=== PATIENT | female | born 1970 | race Caucasian/White ===

== ENCOUNTER 2017-01-09 12:09 | Inpatient (IN) | payer MEDICAID, OTHER ==
[~2017-01-09] VITALS: Ht 167.6 cm; Wt 67.4 kg
[2017-01-09 12:48] LABS: MEAN CORPUSCULAR HEMOGLOBIN 32.6 pg (27.0-33.0); MEAN CORPUSCULAR VOLUME 95.8 fl (80.0-96.0); RED CELL DISTRIBUTION WIDTH 11.4 % (11.5-14.5); WHITE BLOOD COUNT 5.2 K/mm3 (4.0-10.0)
[2017-01-09 12:58] LABS: AMPHETAMINES LEVEL URINE NEGATIVE (NEGATIVE); BENZODIAZEPINES URINE NEGATIVE (NEGATIVE); COCAINE METABOLITE URINE NEGATIVE (NEGATIVE); CONTROL LINE INT CTR LINE PRESENT; METHADONE URINE NEGATIVE (NEGATIVE); OPIATES URINE NEGATIVE (NEGATIVE); TRICYCLIC ANTIDEPRESS URINE NEGATIVE (NEGATIVE)
[2017-01-09 13:12] LABS: ALBUMIN 4.2 GM/DL (3.2-5.2); ALBUMIN/GLOBULIN RATIO 1.11 (1.00-1.93); ALKALINE PHOSPHATASE 82 U/L (45-117); ALT/SGPT 21 U/L (12-78); ANION GAP 6 MEQ/L (8-16); AST/SGOT 18 U/L (15-37); BILIRUBIN,DIRECT 0.1 MG/DL (0.0-0.2); BILIRUBIN,TOTAL 0.4 MG/DL (0.2-1.0); BLOOD UREA NITROGEN 11 MG/DL (7-18); CARBON DIOXIDE LEVEL 28 MEQ/L (21-32); CHLORIDE LEVEL 105 MEQ/L (98-107); CREATININE FOR GFR 0.98 MG/DL (0.55-1.02); GLOMERULAR FILTRATION RATE > 60.0 (>58); GLUCOSE, FASTING 91 MG/DL (70-105); POTASSIUM SERUM 4.4 MEQ/L (3.5-5.1); SODIUM LEVEL 139 MEQ/L (136-145)
[2017-01-09] MEDS ORDERED: LAMI50TA PO (16:09)
[2017-01-09] MEDS ORDERED: ALEV1TAB PO (16:09)
[2017-01-09] MEDS ORDERED: HALO0.052 TOP (16:09)
--- NOTE | 2017-01-09 16:55 | EDDOCDS ---
Physician Documentation [facility] Name: Tarsha Fuentes Age: 46 yrs Sex: Female : 1970 Arrival Date: 01/09/2017 Time: 12:09 Bed [facility] Private MD: Disposition: 01/09/17 15:22 Hospitalization ordered by Darcy Ward for Inpatient Admission. Preliminary diagnosis is Unspecified psychosis not due to a substance or known physiological condition. - Bed requested for Admit. - Status is Inpatient Admission. mcp - Condition is Stable. - Problem is an acute exacerbation. - Symptoms are unchanged. Historical: - Allergies: Maxalt (throat swells); - Home Meds: 1. Lamictal is taking 50mg po BID--is supposed to be increased to 200mg ER but is waiting for prior authorization Oral 2. Aleve PM 220-25 mg oral tab as needed - PMHx: Mitral valve prolapse; Seizures; tachycardia; Migraines; ectopic x2; - PSHx: Hysterectomy; - Social history: Smoking status: Patient uses tobacco products, light tobacco smoker. No barriers to communication noted, The patient speaks fluent Malay. - Family history: Not pertinent. - : The pt / caregiver states he / she is not on anticoagulants. Home medication list is obtained from the patient. - Exposure Risk Screening:: None identified. PRINCIPAL TECHNOLOGIST: 01/09 12:30 2, Living 0, LMP N/A - Hysterectomy mcp Vital Signs: 12:30 Weight 70.31 kg / 155.01 lbs; Height 5 ft. 6 in. (167.64 cm); Pain 8/10; mcp 12:37 BP 126 / 80; Pulse 63; Resp 18; Temp 96.2(O); Pulse Ox 100% on R/A; mcp 16:49 BP 144 / 88; Pulse 73; Resp 18; Temp 97.4(O); Pulse Ox 98% on R/A; Pain 6/10; mcp 12:30 Body Mass Index 25.02 (70.31 kg, 167.64 cm) [facility] MDM: 12:35 Consult PFS/PSA/Weights And Measures Sealer ordered. jc4 12:35 Consult PFS/PSA/Weights And Measures Sealer: Patient's case requires discussion with on-call jc4 Psychiatrist ordered. 12:35 PSA/PFS to call Nursing Medical Coding Technician, to enter patient data on [facility] Safe Act if patient jc4 involuntarily admitted or transferred for SI or HI ordered. 12:35 Confirm accurate psychiatric medication list and times of last dosage ordered. jc4 12:35 Detain Pt Until Medically/PFS Cleared ordered. jc4 12:36 Acetaminophen Level Ordered. EDMS 12:36 Basic Metabolic Profile Ordered. EDMS 12:36 Complete Blood Count Ordered. EDMS 12:36 Drug Eval Toxicology ED Only Ordered. EDMS 12:36 Ethyl Alcohol (ethanol) Ordered. EDMS 12:36 Liver Profile Ordered. EDMS 12:36 Salicylate Level Ordered. EDMS 12:36 Thyroid Stimulating Hormone Ordered. EDMS 13:35 REGULAR DIET PLASTIC NIXON+DIET ordered. EDMS 14:05 Acetaminophen Level Reviewed. ke 14:05 Basic Metabolic Profile Reviewed. ke 14:05 Complete Blood Count Reviewed. ke 14:05 Salicylate Level Reviewed. ke 14:05 Drug Eval Toxicology ED Only Reviewed. ke 14:05 Ethyl Alcohol (ethanol) Reviewed. ke 14:05 Liver Profile Reviewed. ke 14:05 Thyroid Stimulating Hormone Reviewed. ke 14:06 The patient has been medically cleared for psychiatric evaluation, admission and/or ke transfer. [place] Safe Act reporting: The patient poses a significant risk to self or others, and PSA/PFS has notified the Nursing Medical Coding Technician and he/she will complete the required data entry clerk. Awaiting: Psychiatric visitor services technician. and remained under my care. 14:59 Financial registration complete. lg 15:24 BED REQUEST+ADM ordered. EDMS 15:25 [facility] Payment Agreement was scanned into [employer] and attached to record. lg 16:08 Other: Clinic note from [facility] was scanned into [employer] and attached to record. jl 16:28 Admit to IM: ordered. EDMS 16:36 [facility] Legal paperwork was scanned into [employer] and attached to record. jl Signatures: Dispatcher [employer] EDMS Kinjal Clifford, RN Gonsalo Montes mcp, PSA PSA Mikaela Veronica, Oscar Reg lg Rajendra Alvarez, WOODWORKING MACHINE SETTER WOODWORKING MACHINE SETTER Sydnie Delacruz, RN RN jc4 The chart was reviewed and I authenticate all verbal orders and agree with the evaluation and treatment provided.Attachments: 15:25 [facility] Payment Agreement lg MTDD
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
[2017-01-09 17:07] VITALS: BP 153/86
[2017-01-09] MEDS ORDERED: MOM 30ML SUSPENSION UDC PO PRN (18:45)
[2017-01-09] MEDS ORDERED: MAALOX 30 ML SUSP *UDC PO PRN (18:45)
[2017-01-09] MEDS: traZODone 50 MG TAB PO PRN (20:49)
[2017-01-09] MEDS: IBUPROFEN 400 MG TAB PO PRN (20:49)
[2017-01-10 06:00] VITALS: BP 108/58
[2017-01-10] MEDS: NICOTINE 7 MG/24 HR TRANSDERMAL TD SCH (08:49)
[2017-01-10] MEDS: IBUPROFEN 400 MG TAB PO PRN ×2 (09:56→20:12)
--- NOTE | 2017-01-10 10:08 | HPEPDOC ---
Medical History and Physical Date of Admission Jan 09, 2017 at 17:08 History and Physical PCP: [facility] ATTENDING: Dr. Price Crain HPI: 46yF admitted to [facility] for other specified psychosis, being medically examined today. No acute medical complaints today. Denies any fevers, chills, weakness, fatigue, PAT, CP, SOB, cough, palpitations, abdominal pain, N/V/D or changes in bowel or bladder habits. The pt states she was started on Lamictal for mood as per PCP, per pt for "red lining". History is somewhat difficult related to rambling, rapid speech. PMHx: MVP H/O seizure- none recent per pt. migraine PAT ectopic x 2 PSHX: Hysterectomy SOCHX: Resides in: [facility] Marital Status: Kids: none. Pt states she has a therapy dog. Employment: unemployed Tobacco use: / ppd ETOH: 1 beer per month Illicit Drugs: States "everything" in the past but " nothing" currently. IV Drug Use: Denies Tattoos done unprofessionally: in the past. FAMHX: Mother: Alive, seizures Father: Alive, Dementia Siblings: 1 sister Alive, Lupus. 1 brother head injury. Children: none. Unexpected deaths due to medical reasons: None. ROS: As noted in HPI, otherwise 11pt ROS of systems reviewed and remarkable for rash on feet. Erythematous and flaky on toes. Pt states she has been applying steroid cream but it has been ineffective. PE: GEN: 46yoF, appears stated age. Well-nourished, well developed. Agitated at times, pt does not like to touch objects on unit, or exam table. Alert and oriented x 3. Rapid, rambling , tangential speech. HEENT: Normocephalic, atraumatic. Pupils are equal, round, and reactive to light. Extraocular movements are intact. No nystagmus appreciated. Sclera are nonicteric. Conjunctiva without injection. Nose midline. Nasal turbinates without bogginess. EACs both patent BL. TMs both visualized and vee with good cone of light, no bulging or erythema. No facial asymmetry. Moist mucous membranes. Dentition fair. Pharynx pink and moist, no cobblestoning. Neck supple , trachea midline. No lymphadenopathy or thyromegaly appreciated. CHEST: Regular rate and rhythm, +S1, +S2 LUNGS: Clear to auscultation bilaterally. No wheezes, rales, or rhonchi. Breathing appears symmetric and easy. Patient is speaking in full sentences. No accessory muscle use. ABD: Round, soft, non-tender, non-distended. +Bowel sounds throughout. No rebound or guarding. No costovertebral angle tenderness. EXT: Pulses 2+ bilaterally dorsalis pedis and radial. No lower extremity edema appreciated. SKIN: Vaiva Vo, dry, warm. Capillary refill <2sec. Mild erythematous rash noted between toes on feet B/l. NEURO: Alert and oriented x 3. Cranial nerves III-XII are intact. No focal deficits appreciated. EKG: pending. A&P: 46yF admitted to [facility] for other specified psychosis 1. Psych. Plan per Psychiatry. Obtain baseline EKG to assure the safety of psychiatric medications as they can prolong the QT interval. 2. Nicotine dependence. Patch available. 3. Dermatophytosis feet. Apply Clotrimazole cream bilaterally. 4. Follow up with PCP on discharge. [facility]. 5. Staff member present throughout exam, Crystal Merchant RN. Vital Signs Vital Signs Label Value Date Time Patient Temperature 96.5 degrees F 01/10/17 0600 Pulse 71 01/10/17 0600 Respiratory Rate 16 bpm 01/10/17 0600 Blood Pressure Assessment 108/58 (75) 01/10/17 0600 Laboratory Data Labs 24H Laboratory Tests 2 01/09/17 12:32: Acetaminophen Level < 2.0L, Aspartate Amino Transf (AST/SGOT) 18, Alanine Aminotransferase (ALT/SGPT) 21, Alkaline Phosphatase 82, Total Bilirubin 0.4, Direct Bilirubin 0.1, Albumin 4.2, Albumin/Globulin Ratio 1.11, Anion Gap 6L, Calcium Level 9.0, Ethyl Alcohol Level 0.005, Glomerular Filtration Rate > 60.0 , Salicylates Level < 1.7L, Thyroid Stimulating Hormone (TSH) 0.776, Total Protein 8.0, Urine Amphetamine Level NEGATIVE, Urine Benzodiazepines Screen NEGATIVE, Urine Cannabinoids NEGATIVE, Urine Cocaine Metabolite NEGATIVE, Urine Opiates Screen NEGATIVE, Urine Barbiturates, Qualitative NEGATIVE, Urine Methadone Screen NEGATIVE, Urine Tricyclic Antidepressants NEGATIVE CBC/BMP Laboratory Tests 01/09/17 12:32 Red Blood Count 4.72, Mean Corpuscular Volume 95.8, Mean Corpuscular Hemoglobin 32.6, Mean Corpuscular Hemoglobin Concent 34.0, Red Cell Distribution Width 11.4 L Home Medications Scheduled (Lamictal Xr) 50 Mg Tab 50 MG PO BID SEE COMMENTS Halobetasol Propionate (Halobetasol Propionate) 0.05 % Cre 1 DOSE TOP DAILY Scheduled PRN (Aleve Pm 220-25 mg) 1 Tab Tab 1 TAB PO QHS PRN PRN SLEEP Allergies Coded Allergies: Rizatriptan (Unverified Allergy, Unknown, THROAT SWELLS, 01/09/17) Tamia Cochran Jan 10, 2017 10:08
[2017-01-10] MEDS: CLOTRIMAZOLE 1% TOPICAL CREAM 30GM TOP SCH ×2 (12:55→20:12)
[2017-01-10 18:00] VITALS: BP 138/78
[2017-01-10] MEDS: traZODone 50 MG TAB PO PRN (20:12)
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
[2017-01-10] MEDS ORDERED: DIVALPROEX 500 MG TAB PO ONE (22:30)
--- NOTE | 2017-01-11 04:59 | IPNPDOC ---
[facility] Progress Note Progress Note DATE OF SERVICE: 01/11/17 Vital Signs Vital Signs Date Time Temp Pulse Resp B/P Pulse Ox O2 Delivery O2 Flow Rate FiO2 01/10/17 18:00 99.0 80 16 138/78 01/09/17 17:07 99 Room Air Current Medications Current Medications Al Hydrox/Mg Hydrox/Simethicone (Mylanta) 30 ml Q4HP PRN PO HEARTBURN/ INDIGESTION; Start 01/09/17 at 18:45; Stop 02/08/17 at 18:44 Clotrimazole (Lotrimin) 1 dose BID TOP Last administered on 01/10/17 20:12; Start 01/10/17 at 09:00; Stop 02/09/17 at 08:59 Home Med (Med Rec Complete!) ASDIRECTED XX ; Start 01/09/17 at 16:15; Stop at 16:17; Status DC Ibuprofen (Advil) 400 mg Q6HP PRN PO PAIN Last administered on 01/10/17 20:12; Start 01/09/17 at 18:45; Stop 02/08/17 at 18:44 Magnesium Hydroxide (Milk Of Magnesia) 30 ml DAILYPRN PRN PO CONSTIPATION; Start 01/09/17 at 18:45; Stop 02/08/17 at 18:44 Nicotine (Nicoderm Cq 7 Mg) 1 patch DAILY TD Last administered on 01/10/17 08: 49; Start 01/10/17 at 09:00; Stop 02/09/17 at 08:59 Trazodone HCl (Desyrel) 50 mg QHSP PRN PO INSOMNIA Last administered on 20:12; Start 01/09/17 at 18:45; Stop 02/08/17 at 18:44 Allergies Coded Allergies: Rizatriptan (Unverified Allergy, Unknown, THROAT SWELLS, 01/09/17) FABI WOODS MD Jan 11, 2017 04:58
[2017-01-11 06:29] VITALS: BP 115/69
[2017-01-11] MEDS: NICOTINE 7 MG/24 HR TRANSDERMAL TD SCH (08:46)
[2017-01-11] MEDS: IBUPROFEN 400 MG TAB PO PRN (08:46)
[2017-01-11] MEDS: CLOTRIMAZOLE 1% TOPICAL CREAM 30GM TOP SCH (08:46)
--- NOTE | 2017-01-11 11:15 | DS.PDOC ---
[facility] Discharge Summary Discharge Summary DATE OF ADMISSION: Jan 09, 2017 at 17:08 DATE OF DISCHARGE: DISCHARGE DIAGNOSES: 1. . 2. . 3. . REASON FOR ADMISSION: CONSULTANTS INVOLVED: TREATMENT AND PROGRESS ON THE UNIT : . HOSPITAL COURSE: DISCHARGE ASSESSMENT: MENTAL STATUS EXAMINATION ON DISCHARGE: Patient is a -year old female, who is [pleasant, cooperative, well kempt], [tall , overweight, thin, elderly, obese, frail build]. Speech is [pressured, tangential, circumstantial, flight of ideas, [normal in rate, volume, and articulation, and is coherent and spontaneous]. Language skills are . Thought processes including: [clear, Not goal-directed or Goal directed]. Thought content: [irrational, logical, illogical, tangential, paranoid]. Abstract reasoning, and computation: . Description of associations: [loose, tangential, circumstantial, intact]. Description of abnormal or psychotic thoughts: [hallucinations, delusions, preoccupation with violence, homicidal or suicidal ideation, and obsessions]. Judgment: [fair, good, very limited, poor,]. Insight: [very limited, good, fair. poor]. Orientation to [time, place and person]. Recent and remote memory: [Immediate, short-term and long-term memory is intact] . Attention span and concentration: [Poor, good, fair]. Language: [Normal]. Fund of knowledge: [adequate, intact, poor, fair, good]. Mood: [irrational, elated, irritable, distracted, depressed, anxious, restricted , neutral, fully communicative]. Affect: [appropriate, reactive, flat, constricted, animated, irrational, expansive, restricted, depressed, anxious, agitated, hypomania, lability]. MEDICATIONS ON DISCHARGE: - for . - for . - for . PLAN/FOLLOWUP ARRANGEMENTS: . The amount of time spent in the coordination of care for this patient was approximately minutes. Vital Signs Vital Sign - Last 24 Hours 01/10/17 01/11/17 18:00 06:29 Temp 99.0 97.5 Pulse 80 78 Resp 16 20 B/P 138/78 115/69 Laboratory Data Labs 24H Laboratory Tests 2 01/11/17 06:26: Valproic Acid (Depakene) Level 89.1 Medications Scheduled (Lamictal Xr) 50 Mg Tab 50 MG PO BID (Reported) SEE COMMENTS Halobetasol Propionate (Halobetasol Propionate) 0.05 % Cre 1 DOSE TOP DAILY ( Reported) Scheduled PRN (Aleve Pm 220-25 mg) 1 Tab Tab 1 TAB PO QHS PRN PRN SLEEP (Reported) Allergies Coded Allergies: Rizatriptan (Unverified Allergy, Unknown, THROAT SWELLS, 01/09/17) FABI WOODS MD Jan 11, 2017 11:15
[2017-01-11] MEDS ORDERED: DEPA250T32 PO (11:27)
[2017-01-11] MEDS ORDERED: TRAZO50TA PO (11:27)
[2017-01-11] MEDS ORDERED: OSEL75CA PO (11:47)
[2017-01-11] MEDS ORDERED: NICO7PA TD (11:48)
--- NOTE | 2017-01-11 17:54 | EDDOCDS ---
Physician Documentation [facility] Name: Tarsha Fuentes Age: 46 yrs Sex: Female : 1970 Arrival Date: 01/09/2017 Time: 12:09 Bed [facility] Private MD: Disposition: 01/09/17 15:22 Hospitalization ordered by Darcy Ward for Inpatient Admission. Preliminary diagnosis is Unspecified psychosis not due to a substance or known physiological condition. - Bed requested for Admit. - Status is Inpatient Admission. mcp - Condition is Stable. - Problem is an acute exacerbation. - Symptoms are unchanged. Historical: - Allergies: Maxalt (throat swells); - Home Meds: 1. Lamictal is taking 50mg po BID--is supposed to be increased to 200mg ER but is waiting for prior authorization Oral 2. Aleve PM 220-25 mg oral tab as needed - PMHx: Mitral valve prolapse; Seizures; tachycardia; Migraines; ectopic x2; - PSHx: Hysterectomy; - Social history: Smoking status: Patient uses tobacco products, light tobacco smoker. No barriers to communication noted, The patient speaks fluent Swedish. - Family history: Not pertinent. - : The pt / caregiver states he / she is not on anticoagulants. Home medication list is obtained from the patient. - Exposure Risk Screening:: None identified. 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 6 in. (167.64 cm); Pain 8/10; mcp 12:37 BP 126 / 80; Pulse 63; Resp 18; Temp 96.2(O); Pulse Ox 100% on R/A; mcp 16:49 BP 144 / 88; Pulse 73; Resp 18; Temp 97.4(O); Pulse Ox 98% on R/A; Pain 6/10; mcp 12:30 Body Mass Index 25.02 (70.31 kg, 167.64 cm) [facility] MDM: 12:35 Consult PFS/PSA/Structural Layout Worker ordered. jc4 12:35 Consult PFS/PSA/Structural Layout Worker: Patient's case requires discussion with on-call jc4 Psychiatrist ordered. 12:35 PSA/PFS to call Nursing Grey Goods Tester, to enter patient data on [facility] Safe Act if patient jc4 involuntarily admitted or transferred for SI or HI ordered. 12:35 Confirm accurate psychiatric medication list and times of last dosage ordered. jc4 12:35 Detain Pt Until Medically/PFS Cleared ordered. jc4 12:36 Acetaminophen Level Ordered. EDMS 12:36 Basic Metabolic Profile Ordered. EDMS 12:36 Complete Blood Count Ordered. EDMS 12:36 Drug Eval Toxicology ED Only Ordered. EDMS 12:36 Ethyl Alcohol (ethanol) Ordered. EDMS 12:36 Liver Profile Ordered. EDMS 12:36 Salicylate Level Ordered. EDMS 12:36 Thyroid Stimulating Hormone Ordered. EDMS 13:35 REGULAR DIET PLASTIC NIXON+DIET ordered. EDMS 14:05 Acetaminophen Level Reviewed. ke 14:05 Basic Metabolic Profile Reviewed. ke 14:05 Complete Blood Count Reviewed. ke 14:05 Salicylate Level Reviewed. ke 14:05 Drug Eval Toxicology ED Only Reviewed. ke 14:05 Ethyl Alcohol (ethanol) Reviewed. ke 14:05 Liver Profile Reviewed. ke 14:05 Thyroid Stimulating Hormone Reviewed. ke 14:06 The patient has been medically cleared for psychiatric evaluation, admission and/or ke transfer. [place] Safe Act reporting: The patient poses a significant risk to self or others, and PSA/PFS has notified the Nursing Grey Goods Tester and he/she will complete the required data warehouse developer. Awaiting: Psychiatric wig dresser. and remained under my care. 14:59 Financial registration complete. lg 15:24 BED REQUEST+ADM ordered. EDMS 15:25 [facility] Payment Agreement was scanned into Mavenlink and attached to record. lg 16:08 Other: Clinic note from [facility] was scanned into M[employer] and attached to record. jl 16:28 Admit to [facility]: ordered. EDMS 16:36 [facility] Legal paperwork was scanned into Mavenlink and attached to record. jl 01/10 10:18 T-Sheet-- Draft Copy was scanned into Mavenlink and attached to record. gb Signatures: Dispatcher [employer] EDMS Kinjal Clifford, RN Gonsalo Montes mcp, PSA PSA jl Pamela Jackson, Reg Reg gb Mikaela Penny, Reg Reg lg Rajendra Alvarez, VENEER PRESS OPERATOR VENEER PRESS OPERATOR Sydnie Delacruz RN RN jc4 The chart was reviewed and I authenticate all verbal orders and agree with the evaluation and treatment provided.Attachments: 01/09 15:25 [facility] Payment Agreement lg 01/10 10:18 T-Sheet-- Draft Copy gb Chart Complete MTDD
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
--- NOTE | 2017-01-11 17:54 | EDDOCDS ---
Physician Documentation [facility], [place] Name: Tarsha Fuentes Age: 46 yrs Sex: Female : 1970 Arrival Date: 01/09/2017 Time: 12:[address] [facility] Private MD: Disposition: 01/09/17 15:22 Hospitalization ordered by Darcy Ward for Inpatient Admission. Preliminary diagnosis is Unspecified psychosis not due to a substance or known physiological condition. - Bed requested for Admit. - Status is Inpatient Admission. mcp - Condition is Stable. - Problem is an acute exacerbation. - Symptoms are unchanged. Historical: - Allergies: Maxalt (throat swells); - Home Meds: 1. Lamictal is taking 50mg po BID--is supposed to be increased to 200mg ER but is waiting for prior authorization Oral 2. Aleve PM 220-25 mg oral tab as needed - PMHx: Mitral valve prolapse; Seizures; tachycardia; Migraines; ectopic x2; - PSHx: Hysterectomy; - Social history: Smoking status: Patient uses tobacco products, light tobacco smoker. No barriers to communication noted, The patient speaks fluent Mohawk. - Family history: Not pertinent. - : The pt / caregiver states he / she is not on anticoagulants. Home medication list is obtained from the patient. - Exposure Risk Screening:: None identified. 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 6 in. (167.64 cm); Pain 8/10; mcp 12:37 BP 126 / 80; Pulse 63; Resp 18; Temp 96.2(O); Pulse Ox 100% on R/A; mcp 16:49 BP 144 / 88; Pulse 73; Resp 18; Temp 97.4(O); Pulse Ox 98% on R/A; Pain 6/10; mcp 12:30 Body Mass Index 25.02 (70.31 kg, 167.64 cm) [facility] MDM: 12:35 Consult PFS/PSA/Board Setter ordered. jc4 12:35 Consult PFS/PSA/Board Setter: Patient's case requires discussion with on-call jc4 Psychiatrist ordered. 12:35 PSA/PFS to call Nursing Robotic Machine Operator, to enter patient data on [facility] Safe Act if patient jc4 involuntarily admitted or transferred for SI or HI ordered. 12:35 Confirm accurate psychiatric medication list and times of last dosage ordered. jc4 12:35 Detain Pt Until Medically/PFS Cleared ordered. jc4 12:36 Acetaminophen Level Ordered. EDMS 12:36 Basic Metabolic Profile Ordered. EDMS 12:36 Complete Blood Count Ordered. EDMS 12:36 Drug Eval Toxicology ED Only Ordered. EDMS 12:36 Ethyl Alcohol (ethanol) Ordered. EDMS 12:36 Liver Profile Ordered. EDMS 12:36 Salicylate Level Ordered. EDMS 12:36 Thyroid Stimulating Hormone Ordered. EDMS 13:35 REGULAR DIET PLASTIC NIXON+DIET ordered. EDMS 14:05 Acetaminophen Level Reviewed. ke 14:05 Basic Metabolic Profile Reviewed. ke 14:05 Complete Blood Count Reviewed. ke 14:05 Salicylate Level Reviewed. ke 14:05 Drug Eval Toxicology ED Only Reviewed. ke 14:05 Ethyl Alcohol (ethanol) Reviewed. ke 14:05 Liver Profile Reviewed. ke 14:05 Thyroid Stimulating Hormone Reviewed. ke 14:06 The patient has been medically cleared for psychiatric evaluation, admission and/or ke transfer. [place] Safe Act reporting: The patient poses a significant risk to self or others, and PSA/PFS has notified the Nursing Robotic Machine Operator and he/she will complete the required electronic data processing auditor. Awaiting: Psychiatric director career services. and remained under my care. 14:59 Financial registration complete. lg 15:24 BED REQUEST+ADM ordered. EDMS 15:25 [facility] Payment Agreement was scanned into [employer]Pad and attached to record. lg 16:08 Other: Clinic note from [employer] was scanned into [employer] and attached to record. jl 16:28 Admit to IMHU: ordered. EDMS 16:36 [facility] Legal paperwork was scanned into [employer] and attached to record. jl 01/10 10:18 T-Sheet-- Draft Copy was scanned into [employer] and attached to record. gb Signatures: Dispatcher [employer] EDMS Kinjal Clifford, RN Gonsalo Montes mcp, PSA PSA jl Pamela Jackson, Reg Reg gb Mikaela Penyn, Reg Reg lg Rajendra Alvarez, CARRY OUT CLERK CARRY OUT CLERK Sydnie Delacruz RN RN jc4 The chart was reviewed and I authenticate all verbal orders and agree with the evaluation and treatment provided.Attachments: 01/09 15:25 [facility] Payment Agreement lg 01/10 10:18 T-Sheet-- Draft Copy gb Chart Complete MTDD
[2017-01-11] MEDS ORDERED: DIVALPROEX 250 MG TAB PO SCH (21:00)
== END 2017-01-11 13:30 | disposition home or self-care (01) | DRG 753 ==
LOC: M ED 12:09 → M PSY 17:07
PROVIDERS: ADMIT Psychiatry & Neurology Psychiatry; ATTEND Psychiatry & Neurology Psychiatry
DX: F31.10 Bipolar disorder, current episode manic without psychotic features, unspecified (principal); F43.10 Post-traumatic stress disorder, unspecified; Z62.810 Personal history of physical and sexual abuse in childhood; Z91.410 Personal history of adult physical and sexual abuse; G43.909 Migraine, unspecified, not intractable, without status migrainosus; F17.210 Nicotine dependence, cigarettes, uncomplicated; B35.3 Tinea pedis; Z79.899 Other long term (current) drug therapy

== ENCOUNTER → 2017-01-21 | Outpatient (REF) | payer OTHER ==
[~2017-01-21] MED LIST: ALEV1TAB PO; DEPA250T32 PO; HALO0.052 TOP; LAMI50TA PO; NICO7PA TD; OSEL75CA PO; TRAZO50TA PO
== END ==
LOC: M SFHCPLAZ 12:55
PROVIDERS: ATTEND Family Medicine
DX: Z51.81 Encounter for therapeutic drug level monitoring (principal); Z79.899 Other long term (current) drug therapy

== ENCOUNTER → 2017-02-21 | Outpatient (REF) | payer OTHER | LOC: M SFHCLERA 13:43 | PROVIDERS: ATTEND Physician Assistant | DX: L30.9 Dermatitis, unspecified (principal) ==

== ENCOUNTER → 2017-04-12 | Outpatient (REF) | payer OTHER | LOC: M SFHCPLAZ 15:28 | PROVIDERS: ATTEND Dermatology | DX: R20.8 Other disturbances of skin sensation (principal); Z53.9 Procedure and treatment not carried out, unspecified reason ==

== ENCOUNTER 2017-04-29 08:52 | Emergency (ER) | payer OTHER ==
[~2017-04-29] VITALS: Ht 167.6 cm; Wt 77.1 kg
[2017-04-29] MEDS ORDERED: CEPH500C (09:10)
[2017-04-29] MEDS ORDERED: NORC1TAB4 PO (09:10)
[2017-04-29] MEDS ORDERED: KETOROLAC 60 MG/2 ML VIAL (J1885) IM ONE (10:30)
[2017-04-29] MEDS ORDERED: NORCO, ANEXSIA 5/325MG TABLET (HYDROcodone/ACETAMINOPHEN) As Ordered ONE (10:58)
[2017-04-29 11:16] VITALS: BP 107/72
[2017-04-29] MEDS ORDERED: NORCO, ANEXSIA 5/325MG TABLET (HYDROcodone/ACETAMINOPHEN) PO ONE (12:00)
[2017-04-29] MEDS ORDERED: VALI5TAB PO (12:06)
[2017-04-29] MEDS ORDERED: NORCOTAB PO (12:06)
== END 2017-04-29 12:31 | disposition home or self-care (01) ==
LOC: M ED 09:47
DX: M62.830 Muscle spasm of back (principal); S39.012A Strain of muscle, fascia and tendon of lower back, initial encounter; X58.XXXA Exposure to other specified factors, initial encounter; Y92.89 Other specified places as the place of occurrence of the external cause; Y93.89 Activity, other specified; Y99.8 Other external cause status; F41.9 Anxiety disorder, unspecified; M54.2 Cervicalgia; R51 Headache; Z87.891 Personal history of nicotine dependence; Z88.8 Allergy status to other drugs, medicaments and biological substances; Z79.899 Other long term (current) drug therapy; Z79.2 Long term (current) use of antibiotics

== ENCOUNTER → 2017-08-13 | Outpatient (REF) | payer OTHER ==
[~2017-08-13] MED LIST changes: +CEPH500C; +NORC1TAB4 PO; +NORCOTAB PO; +VALI5TAB PO
[2017-08-17 00:07] LABS: O+P EXAM Final report (.)
== END ==
LOC: M SFHCLERA 13:23
PROVIDERS: ATTEND Nurse Practitioner Family
DX: R19.7 Diarrhea, unspecified (principal)

== ENCOUNTER → 2018-01-11 | Outpatient (REF) | payer OTHER ==
[2018-01-11 16:12] LABS: INFLUENZA A AMPLIFICATION NEGATIVE (NEGATIVE); INFLUENZA B AMPLIFICATION NEGATIVE (NEGATIVE)
== END ==
LOC: M SFHCLERA 10:06
DX: R68.89 Other general symptoms and signs (principal)
CPT/HCPCS: 87502

== ENCOUNTER 2019-03-20 10:43 | Emergency (ER) | payer OTHER ==
[~2019-03-20] VITALS: Ht 167.6 cm; Wt 79.5 kg
[~2019-03-20 10:43] MED LIST changes: +HYDR-3715 PO; -NORC1TAB4 PO; +NORC1TAB7 PO; -NORCOTAB PO
[2019-03-20] MEDS ORDERED: CITA20TA6 (11:15)
[2019-03-20] MEDS ORDERED: AMPH10CA (11:15)
[2019-03-20] MEDS ORDERED: GI COCKTAIL 50ML BTL(HYOSCYAMINE/MAALOX/LIDOCAINE VISCOUS)(1:3:1) PO ONE (11:45)
--- NOTE | 2019-03-20 12:32 | REP ---
Soft tissue neck three views: The epiglottis is not hypertrophied. The prevertebral soft tissues are unremarkable. There is mild steepling of the subglottic trachea compatible with tracheobronchitis. Electronically Signed by González Hooper MD 03/20/2019 12:23 P
[2019-03-20] MEDS ORDERED: ONDA4TAB6 PO (12:58)
[2019-03-20] MEDS ORDERED: PRED20TA PO (12:58)
[2019-03-20] MEDS ORDERED: PEPC1TAB5 PO (12:58)
[2019-03-20 13:07] VITALS: BP 144/94
== END 2019-03-20 13:13 | disposition home or self-care (01) ==
LOC: M ED 10:43
DX: J04.10 Acute tracheitis without obstruction (principal); Z79.899 Other long term (current) drug therapy; Z88.8 Allergy status to other drugs, medicaments and biological substances; F17.210 Nicotine dependence, cigarettes, uncomplicated

== ENCOUNTER 2019-07-07 15:36 | Observation (INO) | payer OTHER ==
[~2019-07-07] VITALS: Ht 167.6 cm; Wt 82.0 kg
[~2019-07-07 15:36] MED LIST changes: +AMPH10CA; +CITA20TA6; +ONDA4TAB6 PO; +PEPC1TAB5 PO; +PRED20TA PO; +TRAZ1TAB10 PO; -TRAZO50TA PO
[2019-07-07] MEDS ORDERED: NS 1,000 ML IV SCH (16:02)
[2019-07-07] MEDS ORDERED: METOCLOPRAMIDE INJ 10MG/2ML VIAL (J2765) IV ONE (16:15)
[2019-07-07 16:32] LABS: BASO % 0.4 % (0.0-1.0); EOS # 0.1 10^3/uL (0.0-0.50); HEMATOCRIT 44.2 % (36.0-47.0); HEMOGLOBIN 15.5 g/dl (12.0-15.5); LYMPH # 2.3 10^3/uL (1.5-4.5); LYMPH % 32.1 % (24.0-44.0); MEAN CORPUSCULAR HEMOGLOBIN 33.1 pg (27.0-33.0); MEAN CORPUSCULAR HGB CONC 35.1 g/dl (32.0-36.5); MEAN CORPUSCULAR VOLUME 94.4 fl (80.0-96.0); MONO # 0.5 10^3/uL (0.0-0.8); MONO % 6.4 % (0.0-5.0); NEUTROPHILS # 4.3 10^3/uL (1.8-7.7); NEUTROPHILS % 59.7 % (36.0-66.0); PLATELET COUNT, AUTOMATED 259 10^3/uL (150-450); RED BLOOD COUNT 4.68 10^6/uL (4.00-5.40); WHITE BLOOD COUNT 7.2 10^3/uL (4.0-10.0)
[2019-07-07 16:54] LABS: ERYTHROCYTE SEDIMENTATION RATE 9 mm/hr (0-20)
[2019-07-07] MEDS ORDERED: MORPHINE 2 MG/ML 1ML SYRINGE (J2270) IV ONE (17:15)
[2019-07-07] MEDS ORDERED: KETOROLAC 30 MG/ML VIAL (J1885) IV ONE (17:15)
[2019-07-07 17:24] LABS: ACETAMINOPHEN LEVEL < 2.0 UG/ML (10.0-30.0); ALBUMIN 3.7 GM/DL (3.2-5.2); ALT/SGPT 48 U/L (12-78); BILIRUBIN,DIRECT 0.2 MG/DL (0.0-0.2); BILIRUBIN,TOTAL 0.6 MG/DL (0.2-1.0); BLOOD UREA NITROGEN 18 MG/DL (7-18); CALCIUM LEVEL 9.1 MG/DL (8.5-10.1); CARBON DIOXIDE LEVEL 21 MEQ/L (21-32); CHLORIDE LEVEL 109 MEQ/L (98-107); CPK CREATINE PHOSPHOKINASE 537 U/L (26-192); CREATININE FOR GFR 1.01 MG/DL (0.55-1.30); GLOMERULAR FILTRATION RATE > 60.0 (>58); GLUCOSE, FASTING 95 MG/DL (70-100); MB/CK RELATIVE INDEX 0.56 (< OR =4); POTASSIUM SERUM 3.9 MEQ/L (3.5-5.1); SALICYLATE LEVEL < 1.7 MG/DL (5.0-30.0); SODIUM LEVEL 139 MEQ/L (136-145); TOTAL PROTEIN 7.2 GM/DL (6.4-8.2); TROPONIN I 0.39 NG/ML (< 0.10)
[2019-07-07 19:02] LABS: AMPHETAMINES LEVEL URINE POSITIVE (NEGATIVE); BARBITURATES URINE NEGATIVE (NEGATIVE); BENZODIAZEPINES URINE NEGATIVE (NEGATIVE); CANNABINOIDS URINE NEGATIVE (NEGATIVE); COCAINE METABOLITE URINE NEGATIVE (NEGATIVE); METHADONE URINE NEGATIVE (NEGATIVE); OPIATES URINE POSITIVE (NEGATIVE); PHENCYCLIDINE URINE NEGATIVE (NEGATIVE)
--- NOTE | 2019-07-07 19:09 | REP ---
REASON: Altered mental status. COMPARISON: 11/07/2012. COMPARISON: 11/07/2012 TECHNIQUE: 4.5 mm contiguous transaxial sections were obtained from the skull base to the cerebral convexities with thin cuts through the posterior fossa without the administration of intravenous contrast. FINDINGS: The ventricles and sulci are consistent with the patient's age. There are no extra-axial fluid collections. There is no mass effect. The deep cerebral white matter is consistent with the patient's age. The orbital and petrous structures, cerebellopontine angles, and posterior fossa are unremarkable. The sella turcica, cavernous, and paracavernous structures are essentially unremarkable. The visualized portions of the paranasal sinuses and mastoid air cells are clear. Images of the skull base show no gross abnormality. IMPRESSION: Essentially unremarkable CT examination of the brain. There has been no significant change from the prior exam. Electronically Signed by Varghese Olsen DO 07/08/2019 12:40 P
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
[2019-07-07] MEDS ORDERED: CITA10SO6 PO (19:30)
[2019-07-07] MEDS ORDERED: CITA20TA7 PO (19:31)
[2019-07-07] MEDS ORDERED: BENA25CA4 PO (19:42)
[2019-07-07] MEDS ORDERED: AMPH10CA PO (19:42)
[2019-07-07] MEDS ORDERED: TRAZ-252 PO (19:43)
--- NOTE | 2019-07-07 19:52 | REP ---
CHEST: Two views. There is no evidence of acute infiltrate. No pleural effusion is seen. The heart is normal in size. The mediastinal silhouette is unremarkable. The visualized osseous structures are intact. IMPRESSION: No acute pulmonary disease. Electronically Signed by González Snyder MD 07/08/2019 10:58 A
--- NOTE | 2019-07-07 20:05 | ECGEPIP ---
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
[2019-07-07] MEDS ORDERED: NITROGLYCERIN 0.4 MG SUBL TABLET SL PRN (20:15)
[2019-07-07] MEDS ORDERED: ASPIRIN 81 MG CHEW TABLET PO ONE (20:15)
[2019-07-07] MEDS ORDERED: ACETAMINOPHEN 500 MG TAB PO PRN (20:15)
[2019-07-07] MEDS ORDERED: traZODone 50 MG TAB PO PRN (20:30)
[2019-07-07] MEDS ORDERED: DOXYCYCLINE HYCLATE 100 MG TAB PO SCH (21:00)
[2019-07-07] MEDS: NS 1,000 ML IV SCH (21:56)
[2019-07-07] MEDS ORDERED: IBUPROFEN 800 MG TAB PO ONE (22:30)
[2019-07-08 00:25] VITALS: BP 129/94
[2019-07-08] MEDS: NS 1,000 ML IV SCH (02:55)
[2019-07-08 06:00] VITALS: BP 112/50
[2019-07-08 06:20] LABS: HEMATOCRIT 38.4 % (36.0-47.0); HEMOGLOBIN 12.9 g/dl (12.0-15.5); MEAN CORPUSCULAR HEMOGLOBIN 32.2 pg (27.0-33.0); MEAN CORPUSCULAR HGB CONC 33.6 g/dl (32.0-36.5); MEAN CORPUSCULAR VOLUME 95.8 fl (80.0-96.0); PLATELET COUNT, AUTOMATED 217 10^3/uL (150-450); RED BLOOD COUNT 4.01 10^6/uL (4.00-5.40); WHITE BLOOD COUNT 5.5 10^3/uL (4.0-10.0)
[2019-07-08 06:55] LABS: HEMOGLOBIN A1c 5.1 %
[2019-07-08 07:41] LABS: ALBUMIN 2.7 GM/DL (3.2-5.2); ALT/SGPT 35 U/L (12-78); BILIRUBIN,TOTAL 0.4 MG/DL (0.2-1.0); BLOOD UREA NITROGEN 16 MG/DL (7-18); CARBON DIOXIDE LEVEL 24 MEQ/L (21-32); CHLORIDE LEVEL 113 MEQ/L (98-107); CHOLESTEROL LEVEL 143 MG/DL (<200); CPK CREATINE PHOSPHOKINASE 491 U/L (26-192); CREATININE FOR GFR 0.89 MG/DL (0.55-1.30); GLOMERULAR FILTRATION RATE > 60.0 (>58); GLUCOSE, FASTING 103 MG/DL (70-100); HDL CHOLESTEROL 79 MG/DL (>40); LDL CHOLESTEROL 37 MG/DL (<100); NON-HDL-C 64 MG/DL; POTASSIUM SERUM 3.9 MEQ/L (3.5-5.1); SODIUM LEVEL 142 MEQ/L (136-145); TOTAL PROTEIN 5.5 GM/DL (6.4-8.2); TRIGLYCERIDES LEVEL 137 MG/DL (<150); TROPONIN I 0.19 NG/ML (< 0.10)
[2019-07-08] MEDS ORDERED: CitaloPRAM (CeleXA) 20 MG TAB PO SCH (09:00)
[2019-07-08 10:22] LABS: HEPATITIS B SURFACE ANTIGEN NEGATIVE (NEGATIVE)
[2019-07-08 10:49] LABS: HEPATITIS B CORE ANTIBODY IGM NEGATIVE (NEGATIVE); HEPATITIS C VIRUS ABY INDEX 0.1 INDEX (<0.8)
[2019-07-08 10:51] LABS: HEPATITIS A ANTIBODY IGM NEGATIVE (NEGATIVE)
--- NOTE | 2019-07-08 16:00 | DS.PDOC ---
Discharge Summary General Date of Admission Jul 07, 2019 at 15:37 Date of Discharge 07/08/19 Discharge Summary PROCEDURES PERFORMED DURING STAY: [None]. DISCHARGE DIAGNOSES: left facial droop/possible Lymes troponinemia transaminitis Migraines. History of seizure disorder History of ectopic x 2 Status post Hysterectomy Bipolar 1 d/o with psychotic features w hx of 2 atleast in patient admissions COMPLICATIONS/CHIEF COMPLAINT: Elevated Cpk,Elevated Troponin. HISTORY OF PRESENT ILLNESS: Ms Fuentes is a 48 old female who was sent from the urgent care clinic for evaluation of left-sided facial droop, weakness all over, muscle aches, bone pain, and joint pain for the last week; she also reports h aving chest tightness and dyspnea after walking. She has a lot of time outdoors and was bitten by ticks last week. She denied falling, denied dropping objects, denied using recreational drugs recently, but admits to drinking beer frequently and had her last drink yesterday. She endorsed a history of inpatient admission for treatment of rhabdomyolysis in the past . HOSPITAL COURSE: Patient was admitted for further evaluation and treatment, but left AMA. Risks of leaving without complete evaluation and treatment were explained, she voiced full understanding. DISCHARGE MEDICATIONS: Please see below. ALLERGIES: Please see below. LABORATORY DATA: Please see below. Prognosis: Guarded DISPOSITION: 07 Against Medical Advice. TIME SPENT ON DISCHARGE: Greater than 25 minutes. Vital Signs/I&Os Vital Signs Date Time Temp Pulse Resp B/P (MAP) Pulse Ox O2 Delivery O2 Flow Rate FiO2 07/08/19 06:00 98.6 83 20 112/50 (70) 97 07/07/19 15:37 Room Air I&O- Last 24 Hours up to 6 AM 07/08/19 06:00 Intake Total 1500 ml Output Total 0 ml Balance 1500 ml Laboratory Data Labs 24H Laboratory Tests 2 07/07/19 16:18: Immature Granulocyte % (Auto) 0.4, White Blood Count 7.2, Red Blood Count 4.68, Hemoglobin 15.5, Hematocrit 44.2, Mean Corpuscular Volume 94.4, Mean Corpuscular Hemoglobin 33.1H, Mean Corpuscular Hemoglobin Concent 35.1, Red Cell Dis tribution Width 11.7, Platelet Count 259, Neutrophils (%) (Auto) 59.7, Lymphocytes (%) (Auto) 32.1, Monocytes (%) (Auto) 6.4H, Eosinophils (%) (Auto) 1.0, Basophils (%) (Auto) 0.4, Neutrophils # (Auto) 4.3, Lymphocytes # (Auto) 2.3, Monocytes # (Auto) 0.5, Eosinophils # (Auto) 0.1, Basophils # (Auto) 0.0, Nucleated Red Blood Cells % (auto) 0.0, Erythrocyte Sedimentation Rate 9, Anion Gap 9, Glomerular Filtration Rate > 60.0, Calcium Level 9.1, Aspartate Amino Transf (AST/SGOT) 44H, Alanine Aminotransferase (ALT/SGPT) 48, Alkaline Phosphatase 92, Total Bilirubin 0.6, Direct Bilirubin 0.2, Total Creatine Kinase 537H, Creatine Kinase MB 3.0, Creatine Kinase MB Relative Index 0.56, Troponin I 0.39H, C-Reactive Protein, Quantitative 1.60H, Total Protein 7.2, Albumin 3.7, Albumin/Globulin Ratio 1.06, Thyroid Stimulating Hormone (TSH) 1.750, Salicylates Level < 1.7L, Acetaminophen Level < 2.0L 07/07/19 18:13: Urine Color YELLOW, Urine Appearance HAZY, Urine pH 5.0, Urine Specific [place] 1.023, Urine Protein NEGATIVE, Urine Glucose (UA) NEGATIVE, Urine Ketones 1+H, Urine Blood NEGATIVE, Urine Nitrite NEGATIVE, Urine Bilirubin NEGATIVE, Urine Urobilinogen 0.2, Urine Leukocyte Esterase TRACEH, Urine WBC (Auto) 6H, Urine RBC (Auto) 3, Urine Hyaline Casts (Auto) 0, Urine Bacteria (Auto) 1+H, Urine Squamous Epithelial Cells 2, Urine Mucus (Auto) SMALL, Urine Sperm (Auto) , Urine Amphetamines Screen POSITIVEH, Urine Benzodiazepines Screen NEGATIVE, Urine Opiates Screen POSITIVEH, Urine Methadone Screen NEGATIVE, Urine Barbiturates Screen NEGATIVE, Urine Phencyclidine Screen NEGATIVE, Urine Cocaine Metabolite Screen NEGATIVE, Urine Cannabinoids Screen NEGATIVE 07/07/19 21:49: Troponin I 0.30#H 07/08/19 05:51: Nucleated Red Blood Cells % (auto) 0.0, Anion Gap 5L, Glomerular Filtration Rate > 60.0, Calcium Level 8.0L, Aspartate Amino Transf (AST/SGOT) 34, Alanine Aminotransferase (ALT/SGPT) 35, Alkaline Phosphatase 70, Total Bilirubin 0.4, Total Creatine Kinase 491H, Troponin I 0.19#H, Total Protein 5.5#L, Albumin 2.7#L, Albumin/Globulin Ratio 0.96L, Estimated Mean Plasma Glucose 100, Hemoglobin A1c 5.1, Blood Urea Nitrogen 16, Creatinine 0.89, Sodium Level 142, Potassium Level 3.9, Chloride Level 113H, Carbon Dioxide Level 24, Triglycerides Level 137, LDL Cholesterol 37, Total Cholesterol 143, Non-HDL Cholesterol (LDL + VLDL) 64, Total HDL Cholesterol 79, Cholesterol/HDL Ratio 1.810, Hepatitis A IgM Antibody NEGATIVE, Hepatitis B Surface Antigen NEGATIVE, Hepatitis B Core IgM Antibody NEGATIVE, Hepatitis C Antibody Index 0.1 CBC/BMP Laboratory Tests 07/07/19 16:18 Red Blood Count 4.68, Mean Corpuscular Volume 94.4, Mean Corpuscular Hemoglobin 33.1 H, Mean Corpuscular Hemoglobin Concent 35.1, Red Cell Distribution Width 11.7, Neutrophils (%) (Auto) 59.7, Lymphocytes (%) (Auto) 32.1, Monocytes (%) (Auto) 6.4 H, Eosinophils (%) (Auto) 1.0, Basophils (%) (Auto) 0.4, Neutrophils # (Auto) 4.3, Lymphocytes # (Auto) 2.3, Monocytes # (Auto) 0.5, Eosinophils # (Auto) 0.1, Basophils # (Auto) 0.0 07/08/19 05:51 Red Blood Count 4.01, Mean Corpuscular Volume 95.8, Mean Corpuscular Hemoglobin 32.2, Mean Corpuscular Hemoglobin Concent 33.6, Red Cell Distribution Width 11 .8, Calcium Level 8.0 L, Aspartate Amino Transf (AST/SGOT) 34, Alanine Aminotransferase (ALT/SGPT) 35, Total Creatine Kinase 491 H, Alkaline Phosphatase 70, Total Bilirubin 0.4, Triglycerides Level 137, LDL Cholesterol 37, Total Protein 5.5 #L, Albumin 2.7 #L Microbiology Microbiology 07/07/19 Urine Culture - Final, Complete Discharge Medications Scheduled Dextroamphetamine/Amphetamine (Dextroamp-Amphet ER 10 mg Cap) 10 Mg Cap.er.24h, 10 MG PO BID, (Reported) PATIENT TAKES TABLET FORM AT 8AM AND EARLY AFTERNOON WHEN SHE DOES TAKE THEM Scheduled PRN Diphenhydramine HCl (Benadryl) 25 Mg Capsule, 25 MG PO QHS PRN for INSOMNIA, (Reported) Trazodone HCl (Trazodone HCl) 50 Mg Tablet, 50 MG PO QHS PRN for INSOMNIA, (Repo rted) Allergies Coded Allergies: rizatriptan (Verified Allergy, Unknown, 03/20/19) CATHY ELKINS MD Jul 08, 2019 16:00
[2019-07-10 00:11] LABS: Lyme Disease IgG/IgM Antibodie <0.91 ISR (0.00-0.90); Lyme Disease IgM Ab Quantitati <0.80 index (0.00-0.79)
== END 2019-07-08 07:20 | disposition left against medical advice (07) ==
LOC: M ED 15:36 → M ED INP 15:37 → M MSPAV 07-08 00:45
PROVIDERS: ADMIT Internal Medicine; ATTEND Internal Medicine
DX: R29.810 Facial weakness (principal); R79.89 Other specified abnormal findings of blood chemistry; Z53.21 Procedure and treatment not carried out due to patient leaving prior to being seen by health care provider; R74.0 Nonspecific elevation of levels of transaminase and lactic acid dehydrogenase [LDH]; R74.8 Abnormal levels of other serum enzymes; G43.909 Migraine, unspecified, not intractable, without status migrainosus; F31.89 Other bipolar disorder; F19.10 Other psychoactive substance abuse, uncomplicated; F17.290 Nicotine dependence, other tobacco product, uncomplicated; Z88.8 Allergy status to other drugs, medicaments and biological substances; Z79.899 Other long term (current) drug therapy
CPT/HCPCS: 36415; 70450; 71046; 80048; 80053; 80061; 80076; 80307; 81001; 82550; 82553; 83036; 84443; 85025; 85027; 85652; 86140; 86617; 86705; 86709; 86803; 87086; 87340; 93005; 93041; 94760; 96374; 96375; 99285; G0480; J1885; J2270; J2765

== ENCOUNTER 2019-07-08 07:39 | Emergency (ER) | payer OTHER ==
[~2019-07-08] VITALS: Ht 167.6 cm; Wt 80.9 kg
[~2019-07-08 07:39] MED LIST changes: +AMPH10CA PO; +BENA25CA4 PO; +CITA10SO6 PO; +CITA20TA7 PO; +TRAZ-252 PO
[2019-07-08 07:40] VITALS: BP 129/81
== END 2019-07-08 08:35 | disposition home or self-care (01) ==
LOC: M ED 07:39
DX: R53.1 Weakness (principal); M25.50 Pain in unspecified joint; M79.10 Myalgia, unspecified site; Z65.8 Other specified problems related to psychosocial circumstances; F31.9 Bipolar disorder, unspecified; F10.20 Alcohol dependence, uncomplicated; F19.10 Other psychoactive substance abuse, uncomplicated; F17.200 Nicotine dependence, unspecified, uncomplicated; Z88.8 Allergy status to other drugs, medicaments and biological substances; Z79.899 Other long term (current) drug therapy

== ENCOUNTER 2019-07-10 16:55 | Emergency (ER) | payer OTHER ==
[~2019-07-10] VITALS: Ht 167.6 cm; Wt 84.2 kg
[~2019-07-10 16:55] MED LIST changes: -AMPH10CA; -AMPH10CA PO; +AMPH1CAP14; +AMPH1CAP14 PO; -TRAM50TA2 PO
[2019-07-10] MEDS ORDERED: TRAM50TA2 PO (17:04)
[2019-07-10] MEDS ORDERED: NS 1,000 ML IV ONE (17:30)
[2019-07-10 17:44] LABS: HEMATOCRIT 39.5 % (36.0-47.0); HEMOGLOBIN 13.8 g/dl (12.0-15.5); MEAN CORPUSCULAR HEMOGLOBIN 33.5 pg (27.0-33.0); MEAN CORPUSCULAR HGB CONC 34.9 g/dl (32.0-36.5); MEAN CORPUSCULAR VOLUME 95.9 fl (80.0-96.0); PLATELET COUNT, AUTOMATED 255 10^3/uL (150-450); RED BLOOD COUNT 4.12 10^6/uL (4.00-5.40); WHITE BLOOD COUNT 9.1 10^3/uL (4.0-10.0)
[2019-07-10 18:16] LABS: ALBUMIN 3.7 GM/DL (3.2-5.2); ALT/SGPT 100 U/L (12-78); BILIRUBIN,DIRECT < 0.1 MG/DL (0.0-0.2); BILIRUBIN,TOTAL < 0.1 MG/DL (0.2-1.0); BLOOD UREA NITROGEN 17 MG/DL (7-18); CALCIUM LEVEL 9.2 MG/DL (8.5-10.1); CARBON DIOXIDE LEVEL 22 MEQ/L (21-32); CHLORIDE LEVEL 113 MEQ/L (98-107); CPK CREATINE PHOSPHOKINASE 944 U/L (26-192); CREATININE FOR GFR 1.03 MG/DL (0.55-1.30); GLOMERULAR FILTRATION RATE > 60.0 (>58); GLUCOSE, FASTING 100 MG/DL (70-100); POTASSIUM SERUM 3.9 MEQ/L (3.5-5.1); SODIUM LEVEL 143 MEQ/L (136-145); TOTAL PROTEIN 6.9 GM/DL (6.4-8.2)
[2019-07-10 19:30] VITALS: BP 134/92
== END 2019-07-10 19:46 | disposition home or self-care (01) ==
LOC: M ED 16:55
DX: M62.82 Rhabdomyolysis (principal); F31.9 Bipolar disorder, unspecified; G40.909 Epilepsy, unspecified, not intractable, without status epilepticus; Z79.899 Other long term (current) drug therapy; Z88.8 Allergy status to other drugs, medicaments and biological substances

== ENCOUNTER → 2019-07-10 | Outpatient (REF) | payer OTHER ==
[~2019-07-10] MED LIST changes: +TRAM50TA2 PO
[2019-07-10 13:15] LABS: C REACTIVE PROTEIN QUANTITATIV 0.38 MG/DL (0.00-0.30)
[2019-07-12 00:06] LABS: ANA (HEP2) Positive (.)
== END ==
LOC: M SFHCPLAZ 11:16
PROVIDERS: ATTEND Family Medicine
DX: M79.10 Myalgia, unspecified site (principal)

== ENCOUNTER → 2019-07-14 | Outpatient (CLI) | payer OTHER ==
[~2019-07-14] MED LIST changes: +AMPH10CA; +AMPH10CA PO; -AMPH1CAP14; -AMPH1CAP14 PO; +TRAM50TA2 PO
[2019-07-14 12:14] LABS: BLOOD UREA NITROGEN 16 MG/DL (7-18); CALCIUM LEVEL 10.1 MG/DL (8.5-10.1); CARBON DIOXIDE LEVEL 23 MEQ/L (21-32); CHLORIDE LEVEL 107 MEQ/L (98-107); CPK CREATINE PHOSPHOKINASE 167 U/L (26-192); CREATININE FOR GFR 0.87 MG/DL (0.55-1.30); GLOMERULAR FILTRATION RATE > 60.0 (>58); GLUCOSE, FASTING 95 MG/DL (70-100); POTASSIUM SERUM 4.4 MEQ/L (3.5-5.1); SODIUM LEVEL 139 MEQ/L (136-145)
== END ==
LOC: M LAB 10:41
PROVIDERS: ATTEND Internal Medicine
DX: M62.82 Rhabdomyolysis (principal)

== ENCOUNTER 2020-02-29 07:58 | Emergency (ER) | payer OTHER ==
[~2020-02-29] VITALS: Ht 167.6 cm; Wt 84.1 kg
[~2020-02-29 07:58] MED LIST changes: -AMPH10CA; -AMPH10CA PO; +AMPH1CAP14; +AMPH1CAP14 PO
[2020-02-29] MEDS ORDERED: SUMA100T2 (08:07)
[2020-02-29] MEDS ORDERED: METH1TAB40 (08:07)
[2020-02-29] MEDS ORDERED: IBUP-1022 PO (08:07)
[2020-02-29] MEDS ORDERED: ATOR1TAB19 (08:07)
[2020-02-29] MEDS ORDERED: CYCL10TA PO (08:07)
[2020-02-29] MEDS ORDERED: TRAZ-257 (08:07)
[2020-02-29] MEDS ORDERED: NORCO, ANEXSIA 5/325MG TABLET (HYDROcodone/ACETAMINOPHEN) PO ONE (08:30)
[2020-02-29] MEDS ORDERED: NAPR-837 PO (09:22)
[2020-02-29 09:38] VITALS: BP 159/99
--- NOTE | 2020-02-29 09:59 | REP ---
CERVICAL SPINE RADIOGRAPHS: EIGHT VIEWS. HISTORY: Left cervical radiculopathy. Comparison cervical spine radiographs March 20, 2019 and September 11, 2013. FINDINGS: Lateral views done in flexion and extension and neutral position demonstrate slight straightening and some limitation of flexion/extension range of motion. Cervical vertebral body heights are preserved. No subluxation or instability is seen. There is degenerative disc narrowing at C5-6 and C6-7. Most pronounced at C6-7. Swimmers lateral view shows no additional finding. Open-mouth odontoid view is normal. AP view demonstrates osteoarthritic facet hypertrophy, most pronounced on the right at C4-5 and on the left at C3-4. Oblique radiographs demonstrate minimal uncovertebral spurring on the left at C6-7 and on the right at C5-6 and C6-7. No bony destructive lesion is seen. IMPRESSION: Degenerative spondylosis changes. Minimal uncovertebral spurring on the left is C6-7. Slightly more prominent uncovertebral spurring on the right at C6-7 and C5-6. Degenerative disc disease C5-6 and C6-7. These changes are more pronounced than on the 2013 prior study. Electronically Signed by Jean Carlos Cesar MD 02/29/2020 03:33 P
== END 2020-02-29 09:58 | disposition home or self-care (01) ==
LOC: M ED 07:58
DX: M62.838 Other muscle spasm (principal); M54.12 Radiculopathy, cervical region; Z88.8 Allergy status to other drugs, medicaments and biological substances; F17.218 Nicotine dependence, cigarettes, with other nicotine-induced disorders

== ENCOUNTER 2020-03-27 00:13 | Emergency (ER) | payer OTHER ==
[~2020-03-27] VITALS: Ht 167.6 cm; Wt 77.3 kg
[~2020-03-27 00:13] MED LIST changes: +ATOR1TAB19; +CYCL-707 PO; +IBUP-1022 PO; +METH1TAB40; +NAPR-837 PO; +SUMA100T2; +TRAZ-257
[2020-03-27] MEDS ORDERED: IBUP80TA PO (01:06)
[2020-03-27] MEDS ORDERED: AUGM875T28 PO (01:06)
[2020-03-27] MEDS ORDERED: AUGMENTIN 875 MG TAB PO ONE (01:15)
[2020-03-27] MEDS ORDERED: IBUPROFEN 800 MG TAB PO ONE (01:15)
[2020-03-27] MEDS ORDERED: BOOSTRIX/ADACEL VACCINE (DIPHTH/PERTUSS/ACELL/TETANUS) 0.5ML SYR IM ONE (01:15)
[2020-03-27 01:26] VITALS: BP 143/92
== END 2020-03-27 01:38 | disposition home or self-care (01) ==
LOC: M ED 00:13
DX: S70.372A Other superficial bite of left thigh, initial encounter (principal); W54.0XXA Bitten by dog, initial encounter; Y92.89 Other specified places as the place of occurrence of the external cause; E78.5 Hyperlipidemia, unspecified; M54.9 Dorsalgia, unspecified; F41.9 Anxiety disorder, unspecified; R51 Headache; Z72.0 Tobacco use; Z88.8 Allergy status to other drugs, medicaments and biological substances; Z79.899 Other long term (current) drug therapy; Z79.1 Long term (current) use of non-steroidal anti-inflammatories (NSAID); Z23 Encounter for immunization

== ENCOUNTER 2021-02-19 19:07 | Emergency (ER) | payer OTHER ==
[~2021-02-19] VITALS: Ht 167.6 cm; Wt 81.8 kg
[~2021-02-19 19:07] MED LIST changes: +AUGM875T28 PO; +IBUP80TA PO; +METH-1164; -METH1TAB40
[2021-02-19 19:16] VITALS: BP 133/90
[2021-02-19] MEDS ORDERED: VALA1TAB5 (19:28)
[2021-02-19] MEDS ORDERED: BUSP10TA (19:28)
[2021-02-19] MEDS ORDERED: LIDOCAINE 2% MDV 20ML VIAL SC ONE (20:20)
[2021-02-19] MEDS ORDERED: AUGM875T28 PO (20:48)
== END 2021-02-19 21:49 | disposition home or self-care (01) ==
LOC: M ED 19:07
DX: S01.451A Open bite of right cheek and temporomandibular area, initial encounter (principal); S01.151A Open bite of right eyelid and periocular area, initial encounter; W54.0XXA Bitten by dog, initial encounter; E78.5 Hyperlipidemia, unspecified; F41.9 Anxiety disorder, unspecified; Y92.9 Unspecified place or not applicable; Y93.9 Activity, unspecified; Y99.9 Unspecified external cause status; Z88.8 Allergy status to other drugs, medicaments and biological substances

== ENCOUNTER 2025-07-01 16:16 | Inpatient (IN) | payer OTHER ==
[~2025-07-01] VITALS: Ht 167.6 cm; Wt 95.5 kg
[~2025-07-01 16:16] MED LIST changes: +BUSP10TA; -DEPA250T32 PO; +DIVA-65 PO; -HALO0.052 TOP; +HALO0.056 TOP; +ONDA-282 PO; -ONDA4TAB6 PO; -SUMA100T2; +SUMA100T2 PO; +VALA1TAB5 PO
[2025-07-01 16:59] LABS: PLATELET COUNT, AUTOMATED 329 10^3/uL (150-450)
[2025-07-01 17:05] LABS: KETONE, URINE AUTO RFX TRACE mg/dL (NEGATIVE); LEUKOCYTE ESTERASE UR AUTO RFX NEGATIVE (NEGATIVE); MUCUS, URINE RFX SMALL (NEGATIVE); NITRITE, URINE AUTO RFX NEGATIVE (NEGATIVE); RBC, URINE AUTO RFX 0 /HPF (0-3); SQUAM EPITHELIAL CELL UR AURFX 3 /HPF (0-6); WBC, URINE AUTO RFX 1 /HPF (0-3)
[2025-07-01 17:15] LABS: ETHYL ALCOHOL (ETHANOL) 0.275 % (0.000-0.010)
[2025-07-01 17:17] LABS: ALT/SGPT 324 U/L (7.0-40); AST/SGOT 278 U/L (<34); CALCIUM LEVEL 9.3 MG/DL (8.5-10.1); CARBON DIOXIDE LEVEL 17 MMOL/L (20-31); CHLORIDE LEVEL 105 MMOL/L (98-107); CREATININE FOR GFR 0.67 MG/DL (0.55-1.30); GLOMERULAR FILTRATION RATE > 90.0 (>51); POTASSIUM SERUM 3.9 MMOL/L (3.5-5.1); SALICYLATE LEVEL < 3.0 MG/DL (<30); SODIUM LEVEL 143 MMOL/L (136-145)
[2025-07-01 18:29] LABS: AMPHETAMINES LEVEL URINE NEGATIVE (NEGATIVE); BARBITURATES URINE NEGATIVE (NEGATIVE); BENZODIAZEPINES URINE NEGATIVE (NEGATIVE); COCAINE METABOLITE URINE NEGATIVE (NEGATIVE); METHADONE URINE NEGATIVE (NEGATIVE); OPIATES URINE NEGATIVE (NEGATIVE); PHENCYCLIDINE URINE NEGATIVE (NEGATIVE)
[2025-07-01 18:39] LABS: CANNABINOIDS URINE POSITIVE (NEGATIVE)
[2025-07-01] MEDS: ONDANSETRON 4MG ORAL DISINTEGRATING TAB PO ONE (20:38)
[2025-07-01] MEDS: LORazepam 1 MG TAB PO ONE (23:30)
[2025-07-02] MEDS: OXAZEPAM 15MG CAP PO ONE
[2025-07-02] MEDS ORDERED: MAALOX 30 ML SUSP *UDC PO PRN (01:30)
[2025-07-02 04:13] VITALS: BP 140/94
[2025-07-02] MEDS: IBUPROFEN 400 MG TAB PO PRN (04:21)
[2025-07-02 04:46] VITALS: BP 140/94; TEMP 97.5; O2SAT 97
[2025-07-02 06:53] VITALS: BP 123/73
[2025-07-02] MEDS: FOLIC ACID 1 MG TAB PO SCH (09:03)
[2025-07-02] MEDS: THIAMINE 100 MG TAB PO SCH (09:03)
[2025-07-02] MEDS: MULTIVITAMINS/MINERALS THERAP 1 TAB PO SCH (09:03)
[2025-07-02] MEDS: ONDANSETRON 4MG TAB PO PRN (11:04)
[2025-07-02 12:44] LABS: CALCIUM LEVEL 9.5 MG/DL (8.5-10.1); CARBON DIOXIDE LEVEL 25 MMOL/L (20-31); CHLORIDE LEVEL 102 MMOL/L (98-107); CREATININE FOR GFR 0.83 MG/DL (0.55-1.30); GLOMERULAR FILTRATION RATE 83.7 (>51); POTASSIUM SERUM 4.6 MMOL/L (3.5-5.1); SODIUM LEVEL 139 MMOL/L (136-145)
[2025-07-02] MEDS: OXAZEPAM 15MG CAP PO SCH (13:11)
[2025-07-02 13:21] LABS: HEPATITIS C VIRUS ABY INDEX < 0.02 INDEX (<0.8)
[2025-07-02] MEDS ORDERED: HYDR-3490 PO (13:51)
[2025-07-02] MEDS ORDERED: DONE5TAB82 PO (13:51)
[2025-07-02] MEDS ORDERED: TIZA10TA PO (13:51)
[2025-07-02] MEDS ORDERED: AMLO1TAB25 PO (13:51)
[2025-07-02] MEDS ORDERED: HOME MED LIST COMPLETE! XX SCH (13:55)
[2025-07-02 15:30] VITALS: BP 134/90; TEMP 98
[2025-07-02] MEDS: traZODone 50 MG TAB PO PRN (20:25)
[2025-07-02] MEDS: OLANZapine 5 MG TAB PO SCH (20:25)
[2025-07-02 23:17] VITALS: BP 126/82
[2025-07-03 06:26] VITALS: BP 137/87; TEMP 97.9; O2SAT 99
[2025-07-03 10:00] VITALS: BP 147/87
[2025-07-03] MEDS: OLANZapine ORAL DISINTEGRATING TAB 5MG PO PRN (11:15)
[2025-07-03] MEDS: ESCITALOPRAM OXALATE 10 MG TABLET PO SCH (12:03)
[2025-07-03 15:13] VITALS: BP 140/88; TEMP 97.8; O2SAT 97
[2025-07-03 18:00] VITALS: BP 145/87
[2025-07-03] MEDS: OXAZEPAM 15MG CAP PO SCH (18:16)
[2025-07-03] MEDS: traZODone 50 MG TAB PO SCH (20:39)
[2025-07-03] MEDS: ACETAMINOPHEN 325 MG TAB PO PRN (20:40)
[2025-07-04 06:31] VITALS: BP 152/82; TEMP 97.5; O2SAT 98
[2025-07-04 07:52] LABS: ALT/SGPT 266.0 U/L (7.0-40); AST/SGOT 196.0 U/L (<34)
[2025-07-04 10:24] VITALS: BP 152/79
[2025-07-04] MEDS: MULTIVITAMINS/MINERALS THERAP 1 TAB PO SCH (10:36)
[2025-07-04] MEDS: FOLIC ACID 1 MG TAB PO SCH (10:36)
[2025-07-04] MEDS: THIAMINE 100 MG TAB PO SCH (10:40)
[2025-07-04] MEDS: amLODIPine 10 MG TAB PO SCH (11:34)
[2025-07-04] MEDS: hydroCHLOROthiazide 25 MG TAB PO SCH (11:34)
[2025-07-04 12:41] VITALS: BP 151/83
[2025-07-04 14:42] VITALS: BP 160/90
[2025-07-04 15:13] VITALS: BP 133/79; TEMP 98; O2SAT 98
[2025-07-04] MEDS: MOM 30 ML SUSPENSION UDC PO PRN (18:06)
[2025-07-05] MEDS: OXAZEPAM 15MG CAP PO ONE (06:01)
[2025-07-05 06:27] VITALS: BP 124/78; TEMP 98.1; O2SAT 97
[2025-07-05 06:28] VITALS: BP 124/78
[2025-07-05 08:18] VITALS: BP 124/78
[2025-07-05 09:11] VITALS: BP 168/122
[2025-07-05] MEDS ORDERED: TRAZ-252 PO (09:57)
[2025-07-05] MEDS ORDERED: LEXA1TAB PO (09:57)
[2025-07-05] MEDS ORDERED: HYDR-3490 PO (09:57)
[2025-07-05] MEDS ORDERED: TIZA10TA PO (09:57)
[2025-07-05] MEDS ORDERED: AMLO1TAB25 PO (09:57)
[2025-07-05 10:18] VITALS: BP 163/93
[2025-07-05 11:15] VITALS: BP 130/80
== END 2025-07-05 15:13 | disposition home or self-care (01) | DRG 752 ==
LOC: EDBD 16:16 → M ED 16:16 → M ED INP 07-02 01:29 → M PSY 07-02 03:44
PROVIDERS: ADMIT Psychiatry & Neurology Neurology; ATTEND Psychiatry & Neurology Psychiatry
DX: F60.3 Borderline personality disorder (principal); R45.851 Suicidal ideations; E78.5 Hyperlipidemia, unspecified; G89.29 Other chronic pain; F40.10 Social phobia, unspecified; F41.9 Anxiety disorder, unspecified; M54.9 Dorsalgia, unspecified; G47.00 Insomnia, unspecified; F10.229 Alcohol dependence with intoxication, unspecified; Z62.810 Personal history of physical and sexual abuse in childhood; Z91.414 Personal history of adult intimate partner abuse; Z79.899 Other long term (current) drug therapy; Z88.0 Allergy status to penicillin

== ENCOUNTER → 2025-07-14 | Outpatient (REF) | payer OTHER, MEDICAID ==
[~2025-07-14] MED LIST changes: +AMLO1TAB25 PO; +DONE5TAB82 PO; +HYDR-3490 PO; +LEXA1TAB PO; +TIZA10TA PO
[2025-07-14 17:33] LABS: BASO # 0.0 10^3/uL (0.0-0.2); BASO % 0.6 % (0.0-1.0); EOS # 0.1 10^3/uL (0.0-0.5); EOS % 1.4 % (0.0-3.0); LYMPH # 1.7 10^3/uL (1.5-5.0); LYMPH % 26.8 % (24.0-44.0); MONO # 0.4 10^3/uL (0.0-0.8); MONO % 6.0 % (2.0-8.0); NEUTROPHILS # 4.2 10^3/uL (1.5-8.5); NEUTROPHILS % 65.0 % (36.0-66.0); PLATELET COUNT, AUTOMATED 413 10^3/uL (150-450)
[2025-07-14 17:35] LABS: C REACTIVE PROTEIN QUANTITATIV 0.67 MG/DL (<1.0)
[2025-07-14 17:36] LABS: ALT/SGPT 231 U/L (7.0-40); AST/SGOT 119 U/L (<34); CALCIUM LEVEL 9.4 MG/DL (8.5-10.1); CARBON DIOXIDE LEVEL 22 MMOL/L (20-31); CHLORIDE LEVEL 109 MMOL/L (98-107); CREATININE FOR GFR 0.73 MG/DL (0.55-1.30); GLOMERULAR FILTRATION RATE > 90.0 (>51); POTASSIUM SERUM 4.7 MMOL/L (3.5-5.1); SODIUM LEVEL 144 MMOL/L (136-145)
[2025-07-14 17:38] LABS: RHEUMATOID FACTOR QUANT 6.3 IU/ML (<14)
[2025-07-14 17:50] LABS: ERYTHROCYTE SEDIMENTATION RATE 29 mm/hr (0-30)
[2025-07-14 17:59] LABS: HIV 1&2 SCREEN NEGATIVE (NEGATIVE)
[2025-07-14 18:06] LABS: HEPATITIS C VIRUS ABY INDEX < 0.02 INDEX (<0.8)
[2025-07-14 18:13] LABS: Trichomonas vaginalis (AMP) NOT DETECTED (NEGATIVE)
[2025-07-14 18:36] LABS: GC DNA AMPLIFICATION NEGATIVE (NEGATIVE)
[2025-07-19 18:16] LABS: SSA SJOGRENS A <1.0 NEG AI (<1.0 NEG); SSB SJOGRENS B <1.0 NEG AI (<1.0 NEG)
[2025-07-20 10:32] LABS: ANA PATTERN 2 Nuclear, Speckled; ANA TITER 2 1:40 titer (NEGATIVE)
[2025-07-22 12:58] LABS: HLA-B27 Negative (Negative)
== END ==
LOC: M LAB REF 16:18
PROVIDERS: ATTEND Family Medicine Addiction Medicine
DX: Z11.3 Encounter for screening for infections with a predominantly sexual mode of transmission (principal); M32.8 Other forms of systemic lupus erythematosus

== ENCOUNTER → 2025-10-07 | Outpatient (REF) | payer OTHER ==
[~2025-10-07] MED LIST changes: -IBUP-1022 PO; +IBUP600T42 PO
[2025-10-07 16:43] LABS: BASO # 0.0 10^3/uL (0.0-0.2); BASO % 0.5 % (0.0-1.0); EOS # 0.1 10^3/uL (0.0-0.5); EOS % 1.3 % (0.0-3.0); LYMPH # 2.2 10^3/uL (1.5-5.0); LYMPH % 28.9 % (24.0-44.0); MONO # 0.5 10^3/uL (0.0-0.8); MONO % 6.7 % (2.0-8.0); NEUTROPHILS # 4.8 10^3/uL (1.5-8.5); NEUTROPHILS % 62.1 % (36.0-66.0); PLATELET COUNT, AUTOMATED 333 10^3/uL (150-450)
[2025-10-07 17:09] LABS: ALT/SGPT 200.0 U/L (7.0-40); AST/SGOT 135.0 U/L (<34); CALCIUM LEVEL 9.4 MG/DL (8.5-10.1); CARBON DIOXIDE LEVEL 28.0 MMOL/L (20-31); CHLORIDE LEVEL 102.0 MMOL/L (98-107); CREATININE FOR GFR 0.85 MG/DL (0.55-1.30); GLOMERULAR FILTRATION RATE 80.9 (>51); POTASSIUM SERUM 3.7 MMOL/L (3.5-5.1); SODIUM LEVEL 139.0 MMOL/L (136-145)
== END ==
LOC: M LAB REF 16:23
PROVIDERS: ATTEND Family Medicine Addiction Medicine
DX: R74.8 Abnormal levels of other serum enzymes (principal)

== ENCOUNTER → 2025-11-10 | Outpatient (REF) | payer OTHER ==
[2025-11-10 15:11] LABS: ALT/SGPT 105 U/L (7.0-40); AST/SGOT 90 U/L (<34); CALCIUM LEVEL 9.7 MG/DL (8.5-10.1); CARBON DIOXIDE LEVEL 26 MMOL/L (20-31); CHLORIDE LEVEL 105 MMOL/L (98-107); CREATININE FOR GFR 0.73 MG/DL (0.55-1.30); GLOMERULAR FILTRATION RATE > 90.0 (>51); POTASSIUM SERUM 4.2 MMOL/L (3.5-5.1); SODIUM LEVEL 140 MMOL/L (136-145)
[2025-11-10 15:46] LABS: HEPATITIS C VIRUS ABY INDEX < 0.02 INDEX (<0.8)
== END ==
LOC: M LAB REF 14:34
PROVIDERS: ATTEND Family Medicine Addiction Medicine
DX: R74.8 Abnormal levels of other serum enzymes (principal); M32.8 Other forms of systemic lupus erythematosus